=== PATIENT | female | born 1985 | race Caucasian/White ===

== ENCOUNTER 2023-09-02 15:50 | Emergency (ER) | payer OTHER, SELFPAY ==
--- NOTE | 2023-09-02 16:04 | ED.EYEPROB ---
HPI - Eye Problem General Chief complaint: Eye Problems Stated complaint: Eye Problem Source: patient Mode of arrival: ambulatory Limitations: no limitations History of Present Illness HPI Narrative: 37 y/o female presented for c/o left eye redness, burning and drainage. Onset this morning. Denies injury or foreign body. Denies vision changes or eye pain. No treatment prior to arrival. chief complaint: eye pain Related Data Allergies Allergy/AdvReac Type Severity Reaction Status Date / Time No Known Allergies Allergy Unverified 09/02/23 16:06 Review of Systems Review of Systems: CONSTITUTIONAL: Denies body aches, fever, chills EYES: Endorses redness and pain to left eye; denies swelling, FB sensation, photophobia, visual changes ENT: Denies rhinorrhea, congestion, sore throat, or otalgia. CARDIOVASCULAR: Denies chest pain, palpitations SKIN: Denies rash, itching, or wounds. MUSCULOSKELETAL: Denies back pain, joint pain, or myalgia. NEUROLOGIC: Denies headache All systems reviewed & are unremarkable except as noted in HPI and below PMFSH Comments At time of signature, I have reviewed and agree with nursing past medical, surgical, social and family history unless otherwise noted. Please see nursing chart for further information. There is no relevant family history pertinent to the presenting complaint Exam Narrative: GENERAL: Well-appearing HEAD: Normocephalic, atraumatic. EYES: Left conjunctival injection, purulent drainage, mild upper eye lid swelling; PERRLA, EOMI. Lid eversion shows no FB ENT: Mucous membranes pink and moist. No rhinorrhea. TMs normal bilaterally. Throat normal. Uvula midline. CHEST: Clear to auscultation. HEART: Regular rate and rhythm. SKIN: Warm, dry, no rash. Normal skin turgor. NEURO: No focal deficits. Alert and oriented x3 PSYCH: Normal affect. Course Course Emergency Course: Patient is aware of diagnosis, understands and agrees to treatment plan. Anticipatory guidance given. Patient agrees to follow-up as directed and is aware of reasons to seek care at the emergency department. Portions of this record may have been created with voice recognition software Level of Care: Express Care Visit MDM - Eye Problem MDM Narrative Medical decision making narrative: Discussed physical exam findings c/w bacterial conjunctivitis. Rx polytrim appears as not reimbursed, will send ofloxacin. Advised supportive measures and signs/symptoms to go to the ER. Pt is appropriate for outpt treatment and f/u. Differential Diagnosis Differential diagnosis: Likely corneal abrasion, conjunctivitis and acute iritis Discharge Plan Discharge Clinical Impression: Bacterial conjunctivitis Patient Disposition: Home, Self-Care Condition: Stable Instructions: Antibiotic Form, Conjunctivitis (ED) Additional Instructions: Avoid touching or rubbing your eye. Use over the counter lubricating eye drops as needed for irritation Use a warm or cool washcloth on your eye for comfort Use eyedrops as directed - you are contagious for 24 hours after starting the antibiotic Practice good handwashing and hygiene to prevent spread of infection Do not wear the contact lenses. Use a new pair after the infection is resolved. Use new makeup, lashes etc. You may take Tylenol or ibuprofen for pain Follow-up with PCP or wind site manager if condition is not improving in 2-3days. Go to the emergency room if you have severe pain or pressure behind your eye, difficulty seeing, or other severe symptoms [facility] [phone] [facility] [phone] [facility] [phone] [facility] [phone] Prescriptions: New ofloxacin 0.3 % drops See Rx Instructions .ROUTE .COMPLEX Qty: 10 0RF Rx Instructions: put 2 drops into affected eye(s) every 2-4 h x 2 days, then 2 drops 4 times/day days 3-7 Follow-up/Referrals: UNKNOWN,DOCTOR [Nancie
[2023-09-02 16:05] VITALS: BP 148/87; PULSE 93; RESP 18; TEMP 37; O2SAT 100
== END 2023-09-02 16:15 | disposition home or self-care (01) ==
PROVIDERS: Emergency Provider Nurse Practitioner Family
DX: H10.9 Unspecified conjunctivitis (principal)
CPT/HCPCS: 99203; G0463